=== PATIENT | male | born 1950 | race Caucasian/White ===

== ENCOUNTER → 2017-12-17 | Day surgery (SDC) | payer MEDICARE, OTHER ==
[2017-12-12 11:35] LABS: BASOPHILS # (AUTO) 0.1 (0.0-0.1); BASOPHILS % 1.3 % (0.0-1.0); EOSINOPHILS # (AUTO) 0.1 (0.0-0.4); EOSINOPHILS % 2.6 % (0.0-6.0); HEMATOCRIT 45.7 % (38.2-49.6); HEMOGLOBIN 14.8 g/dL (14.0-18.0); LYMPHOCYTES # (AUTO) 1.9 (1.0-3.2); LYMPHOCYTES % 35.8 % (18.0-39.1); MEAN CORPUSCULAR HEMOGLOBIN 29.3 pg (28-32); MEAN CORPUSCULAR HGB CONC 32.4 g/dL (31-35); MEAN CORPUSCULAR VOLUME 90.5 fL (81-99); MONOCYTES # (AUTO) 0.5 (0.2-0.8); MONOCYTES % 9.2 % (4.4-11.3); NEUTROPHILS # (AUTO) 2.7 (2.1-6.9); NEUTROPHILS % 50.5 % (38.7-80.0); PLATELET COUNT 179 x10e3/uL (140-360); RED BLOOD COUNT 5.05 x10e6/uL (4.3-5.7)
[~2017-12-17] MED LIST: ASPIRIN325 MG PO; FENTANYL CITRATE/PF 100MCG/2 ML INJ ONE; HYOSCYAMINE SULFATE 0.5 MG/ML AMP ONE; LIDOCAINE HCL 2% LOCAL INJ 5 ML SDV VIAL INJ ONE; MIDAZOLAM HCL 2 MG/2 ML VIAL ONE; PACERONE100 MG PO; PROPOFOL IV EMULSION 10 MG/ML 50 ML VIAL ONE; SIMETHICONE 40 MG/0.6 ML BTL ONE; SIMVASTATIN PO
[2017-12-17 09:45] VITALS: BP 117/84
--- NOTE | 2017-12-17 10:12 | Operative Report ---
DATE OF PROCEDURE: December 17, 2017 REFERRING PHYSICIAN: Dr. Erick Ascencio PROCEDURE PERFORMED: Colonoscopy and polypectomy. INDICATIONS FOR COLONOSCOPY: Colorectal cancer screening and personal history of colon polyps. MEDICATION: Patient was done under MAC. Please see anesthesiologist's note. PROCEDURE: With the patient in the left lateral decubitus position, the flexible fiberoptic Olympus colonoscope was inserted into the rectum with ease and advanced all the way to the cecum. The scope was then withdrawn slowly. Mucosa overlying the cecum appeared to be within normal limits. One polyp was hot biopsied and one polyp was snared from the ascending colon. The transverse and descending appeared to be within normal limits. One polyp was hot biopsied from the sigmoid. The rectum appeared to be within normal limits. The scope was then retroflexed into the distal rectum and small internal hemorrhoids were noted, none of which were actively bleeding. The scope was then straightened out. It was subsequently withdrawn. The patient tolerated the procedure well. IMPRESSION 1. Ascending colon polyps times 2, one snared and one hot biopsied. 2. Sigmoid colon polyp, hot biopsied. 3. Internal hemorrhoids, none actively bleeding. PLAN: Follow up histology. Initiate high-fiber and low-fat diet. Initiate high-fiber supplement. Patient will need a followup colonoscopy in 3-5 years. Job#: [id number] RI cc:DO LEATHA UGARTE MD
== END | disposition home or self-care (01) ==
LOC: OR 06:17
PROVIDERS: ATTEND Internal Medicine Gastroenterology
DX: Z12.11 Encounter for screening for malignant neoplasm of colon (principal); D12.2 Benign neoplasm of ascending colon; K64.8 Other hemorrhoids; I48.91 Unspecified atrial fibrillation; Z88.0 Allergy status to penicillin; Z88.2 Allergy status to sulfonamides; Z01.812 Encounter for preprocedural laboratory examination; Z79.82 Long term (current) use of aspirin
CPT/HCPCS: 36415 ×2; 45384; 45385; 82948; 85025; 88305; J1980; J2001; J2250; 45378

== ENCOUNTER → 2019-06-11 | Day surgery (SDC) | payer MEDICARE, OTHER ==
[2019-06-10 13:04] LABS: BASOPHILS # (AUTO) 0.1 (0.0-0.1); BASOPHILS % 0.9 % (0.0-1.0); EOSINOPHILS # (AUTO) 0.1 (0.0-0.4); EOSINOPHILS % 1.2 % (0.0-6.0); HEMATOCRIT 45.3 % (38.2-49.6); HEMOGLOBIN 14.8 g/dL (14.0-18.0); LYMPHOCYTES # (AUTO) 1.9 (1.0-3.2); LYMPHOCYTES % 27.5 % (18.0-39.1); MEAN CORPUSCULAR HEMOGLOBIN 29.5 pg (28-32); MEAN CORPUSCULAR HGB CONC 32.7 g/dL (31-35); MEAN CORPUSCULAR VOLUME 90.4 fL (81-99); MONOCYTES # (AUTO) 0.5 (0.2-0.8); MONOCYTES % 7.1 % (4.4-11.3); NEUTROPHILS # (AUTO) 4.3 (2.1-6.9); NEUTROPHILS % 62.3 % (38.7-80.0); PLATELET COUNT 178 x10e3/uL (140-360); RED BLOOD COUNT 5.01 x10e6/uL (4.3-5.7); RED CELL DISTRIBUTION WIDTH 13.1 % (11.7-14.4)
--- NOTE | 2019-06-10 13:25 | Diagnostic Imaging Report ---
EXAMINATION: CHEST 2 VIEWS INDICATION: Pre-operative COMPARISON: None FINDINGS: LINES/TUBES:None LUNGS:The lungs are well-inflated. No focal consolidation or pulmonary edema. PLEURA:No pleural effusion or pneumothorax. MEDIASTINUM:The cardiomediastinal silhouette appears normal in size and shape. BONES/SOFT TISSUES:No acute osseous injury. ABDOMEN:No free air under the diaphragm. IMPRESSION: No focal pneumonia or pulmonary edema. Signed by: Randell Maddox MD on 06/10/2019 1:22 PM
[~2019-06-11] MED LIST changes: +BUPIVACAINE HCL 0.5% INJ 30 ML VIAL INJ ONE; +CLINDAMYCIN PHOS 900MG/ 50ML 50 ML IV ONE; +DEXAMETHASONE SOD PHOS INJ 4 MG/ML VIAL ONE; -HYOSCYAMINE SULFATE 0.5 MG/ML AMP ONE; +KETOROLAC TROMETHAMINE 30 MG/ML VIAL ONE; +LEVOTHYROXINE75 MCG PO; +MELOXICAM7.5 MG PO; +ONDANSETRON HCL INJ 2MG/ML 2ML 2 MG/ML VIAL ONE; +PROPOFOL IV EMULSION 10 MG/ML 20 ML VIAL ONE; -PROPOFOL IV EMULSION 10 MG/ML 50 ML VIAL ONE; +SEVOFLURANE INHAL SOLN 250 ML PEN BTL ONE; -SIMETHICONE 40 MG/0.6 ML BTL ONE; +TESTOSTERONE IM
--- OUTSIDE RECORDS SUMMARY | 2019-06-11 09:53 | XMS REPORT ---
[facility] Address Unknown Phone Unavailable Care Team Providers Care Access Database Developer Name Role Phone JAN MASSEY Unavailable Unavailable Payers Payer Name Policy Type Policy Number Effective Date Expiration Date Problems This patient has no known problems. Allergies, Adverse Reactions, Alerts Allergy Name Allergy Type Status Severity Reaction(s) Onset Date Inactive Date Treating Clinician Comments Penicillins DA Active 2012-07-01 00:00:00 Sulfa (Sulfonamide Antibiotics) DA Active 2012-07-01 00:00:00 Medications This patient has no known medications. Results Test Description Test Time Test Comments Text Results Atomic Results Result Comments CHEST 2 VIEWS 2019-06-10 13:21:00 [place] [address] Patient Name: HEIDI CRESPO MR #: [id number] : 1950 Age/Sex: 68/M Req #: [id number] Adm Physician: Ordered by: JAN MASSEY MD Report #: [id number] Location: OR Room/Bed: Procedure: [id number] DX/CHEST 2 VIEWS Exam Date: 06/10/19 Exam Time: 1300 REPORT STATUS: Signed EXAMINATION: CHEST 2 VIEWS INDICATION: Pre-operative COMPARISON: None FINDINGS: LINES/TUBES:None LUNGS:The lungs are well-inflated. No focal consolidation or pulmonary edema. PLEURA:No pleural effusion or pneumothorax. MEDIASTINUM:The cardiomediastinal silhouette appears normal in size and shape. BONES/SOFT TISSUES:No acute osseous injury. ABDOMEN:No free air under the diaphragm. IMPRESSION: No focal pneumonia or pulmonary edema. Signed by: Abdoulaye Burgess MD on 06/10/2019 1:22 PM Dictated By: ABDOULAYE BURGESS MD 1322 Transcribed By: [employer] LAYNE on 06/10/19 1322 COPY TO: JAN MASSEY MD - XR KNEE 3 V RT 2019-05-25 17:10:00 Name: HEIDI CRESPO [facility] : 1950 Age/S:68 /M [address] [facility] Unit#:[id number] Loc: [place] [address] Phys: Amado Eric NP Dis Date: PHONE #: [phone] Status: REG ER FAX #: [phone] Exam Date: 05/25/2019 Reason: TRAUMA EXAMS: CPT CODE: [id number] XR KNEE 3 V RT 94624 REASON FOR EXAM: TRAUMA EXAM ORDER DATE: 05/25/2019 4:59 PM Ordering: Amado Eric NP Attending:Susan Marquez MD Location:[facility] PROCEDURE: - XR KNEE 3 V RT FINDINGS: 3 views of the right knee were obtained. The osseous structures are unremarkable in size and shape with small osteophytes in the lateral compartment. The joint spaces are maintained. No evidence of fracture. The patella is intact IMPRESSION: Small joint effusion. No acute osseous abnormality at 1710 Reported and signed by: Red Hutchins M.D. CC: Susan Marquez MD; Erick Ascencio DO; Amado Eric NP Technologist: Taylor Asencio Trnscrpt Data: 05/25/2019 (171) t.GIANA Orig Print D/T: S: 05/25/2019 (2514) PAGE 1 Signed Report - US ABDOMEN COMPLETE 2018-09-23 13:43:00 Name: HEIDI CRESPO [facility] : 1950 Age/S: 68 / M [address] [facility] Unit #: [id number] Loc: [place], [place] [address] Phys: SonuErick Payne Acct: [id number] Dis Date: Status: REG CLI PHONE #: [phone] Exam Date: 09/23/2018 1317 FAX #: [phone] Reason: RLQ ABD PAIN EXAMS: CPT CODE: [id number] US ABDOMEN COMPLETE 16270 TECHNIQUE - US ABDOMEN COMPLETE . COMPARISON: None provided. HISTORY: 68 years Male RLQ ABD PAIN FINDINGS: Pancreas: Pancreas is not well-visualized. Liver: Normal size. Increased echogenicity. No focal lesions. Liver measures 14.3 cm. Normal flow in the portal vein towards the liver. Gallbladder: Normal in distention. No stones. No wall thickening. Gallbladder wall measures 0.25cm. No pericholecystic fluid. Negative ultrasound Francis sign. Biliary ducts: No intra or extrahepatic biliary dilatation. Common bile duct (CBD) measures 0.26 cm. Spleen: Normal echogenicity. 10.4 x 4.0 x 3.6 cm. Right Kidney: 11.0 x 5.5 x 5.6 cm. Normal echogenicity. No stones. No hydronephrosis. No focal lesions. Left Kidney: 11.9 x 5.6 x 4.7 cm. Normal echogenicity. No stones. No hydronephrosis. No focal lesions. Other: No ascites. IMPRESSION: Fatty liver. No gallstones. Exam limited secondary to patient body habitus. at 1343 Reported and signed by: Indio Leon M.D. PAGE 1 Signed Report (CONTINUED) [facility] 1950 [facility]S: 68 / M [address] [facility] Unit #: [id number] Loc: [place] [address] Phys: Erick Ascencio DO Acct: [id number] Dis Date: Status: REG CLI PHONE #: [phone] Exam Date: 09/23/2018 1317 FAX #: [phone] Reason: RLQ ABD PAIN EXAMS: CPT CODE: [id number] US ABDOMEN COMPLETE 99549 <Continued> CC: Erick Ascencio DO Technologist: Shirley Schultz RDMS Trnscb Date/Time: 09/23/2018 (3559) Geoffrey Orig Print D/T: S: 09/23/2018 (9648) Probe: PAGE 2 Signed Report
[2019-06-11 16:15] VITALS: BP 142/75
--- NOTE | 2019-06-12 23:55 | Operative Report ---
DATE OF PROCEDURE: 06/11/2019 SURGEON: Nigel Ly MD PREOPERATIVE DIAGNOSES: Right knee lateral meniscus tear, right knee degenerative joint disease of the knee. POSTOPERATIVE DIAGNOSES: Right knee lateral meniscus tear, right knee degenerative joint disease of the knee. OPERATIONS/PROCEDURES PERFORMED: The patient underwent a right knee examination under anesthesia, right knee arthroscopy, right knee partial lateral meniscectomy, right knee chondroplasty of the patella, the trochlea, the medial femoral condyle, the medial tibial plateau, the lateral femoral condyle, and lateral tibial plateau. METHODS TIME ANALYST: KIMBERLY Rodriguez ANESTHESIA: General endotracheal intubation anesthesia. IV FLUIDS: Per the Anesthesia record. BLOOD LOSS: Normal. BRIEF DESCRIPTION OF THE PATIENT'S OPERATIVE PROCEDURE: Mr. Hebert was taken to the operative room and placed in supine position on the operating table. Following induction of general anesthesia as well as the endotracheal intubation, the patient's right lower extremity was examined under anesthesia. He was found to have a mild effusion within the knee joint, but otherwise ligamentously stable knee. The patient's lower extremity was prepped and draped in standard surgical fashion. A two-port technique was used to provide this patient's arthroscopic evaluation to the knee joint. Examination of suprapatellar pouch and medial and lateral gutters found no evidence of loose bodies. There was, however, evidence of chondromalacia of the patella and trochlear surfaces. The scope was advanced to medial compartment. Examination of medial compartment demonstrated chondromalacia of the articulating surfaces. The meniscus demonstrated some mild fraying in the posterior horn, but no tearing. A chondroplasty of the medial femoral condyle and medial tibial plateau performed at this time. Scope was advanced to the intercondylar notch and the anterior cruciate ligament was identified and found to be intact. The scope was advanced to lateral compartment and a large parrot-beak tear of the lateral meniscus was encountered. There was further maceration of the mid and posterior horns of the lateral meniscus. A combination of biting forceps and motorized shaver used to resect the torn portion of meniscus. There was also chondromalacia of the lateral femoral condyle and lateral tibial plateau. A chondroplasty of each of these surfaces was performed. Scope was then placed in suprapatellar pouch, and chondroplasties of the patella and trochlea were performed. The knee was deflated with sterile normal saline. Each of the portal sites were closed using 4-0 nylon suture. The portal sites as well as knee itself were injected with 0.5% Marcaine with epinephrine. Sterile dressings were applied and the patient was then awakened and taken to the postanesthesia care unit in stable condition. MD WILMAR Lainez/SATURNINO /[id number]
== END | disposition home or self-care (01) ==
LOC: OR 09:50
PROVIDERS: ATTEND Specialist
DX: S83.261A Peripheral tear of lateral meniscus, current injury, right knee, initial encounter (principal); M17.11 Unilateral primary osteoarthritis, right knee; Z01.810 Encounter for preprocedural cardiovascular examination; Z01.812 Encounter for preprocedural laboratory examination; Z01.811 Encounter for preprocedural respiratory examination; Z88.0 Allergy status to penicillin; Z88.2 Allergy status to sulfonamides; E03.9 Hypothyroidism, unspecified; I10 Essential (primary) hypertension; I48.91 Unspecified atrial fibrillation; E78.00 Pure hypercholesterolemia, unspecified
CPT/HCPCS: 29881; 36415; 71046; 85025; 93005; J1100; J1885; J2001; J2250; J2405; J2704; J3010

== ENCOUNTER 2019-08-06 13:00 | Outpatient (RCR) | payer MEDICARE, OTHER ==
[~2019-08-06 13:00] MED LIST changes: -BUPIVACAINE HCL 0.5% INJ 30 ML VIAL INJ ONE; -CLINDAMYCIN PHOS 900MG/ 50ML 50 ML IV ONE; -DEXAMETHASONE SOD PHOS INJ 4 MG/ML VIAL ONE; -FENTANYL CITRATE/PF 100MCG/2 ML INJ ONE; -KETOROLAC TROMETHAMINE 30 MG/ML VIAL ONE; -LIDOCAINE HCL 2% LOCAL INJ 5 ML SDV VIAL INJ ONE; -MIDAZOLAM HCL 2 MG/2 ML VIAL ONE; -ONDANSETRON HCL INJ 2MG/ML 2ML 2 MG/ML VIAL ONE; -PROPOFOL IV EMULSION 10 MG/ML 20 ML VIAL ONE; -SEVOFLURANE INHAL SOLN 250 ML PEN BTL ONE
== END 2019-08-07 ==
LOC: PT 13:00
PROVIDERS: ATTEND Specialist
DX: M25.511 Pain in right shoulder (principal); M25.561 Pain in right knee; M25.661 Stiffness of right knee, not elsewhere classified
CPT/HCPCS: 97139

== ENCOUNTER 2019-08-27 14:00 | Outpatient (RCR) | payer MEDICARE, OTHER | END 2019-09-07 | LOC: PT 14:00 | PROVIDERS: ATTEND Specialist | DX: M25.561 Pain in right knee (principal); M25.661 Stiffness of right knee, not elsewhere classified | CPT/HCPCS: 97139 ==

== ENCOUNTER → 2020-07-05 | Day surgery (SDC) | payer MEDICARE, OTHER ==
[2020-07-01 11:09] LABS: BASOPHILS # (AUTO) 0.1 (0.0-0.1); BASOPHILS % 1.1 % (0.0-1.0); EOSINOPHILS # (AUTO) 0.1 (0.0-0.4); EOSINOPHILS % 1.8 % (0.0-6.0); HEMATOCRIT 43.9 % (38.2-49.6); HEMOGLOBIN 14.2 g/dL (14.0-18.0); LYMPHOCYTES # (AUTO) 1.8 (1.0-3.2); LYMPHOCYTES % 32.7 % (18.0-39.1); MEAN CORPUSCULAR HEMOGLOBIN 29.2 pg (28-32); MEAN CORPUSCULAR HGB CONC 32.3 g/dL (31-35); MEAN CORPUSCULAR VOLUME 90.1 fL (81-99); MONOCYTES # (AUTO) 0.5 (0.2-0.8); MONOCYTES % 8.4 % (4.4-11.3); NEUTROPHILS # (AUTO) 3.1 (2.1-6.9); NEUTROPHILS % 55.6 % (38.7-80.0); PLATELET COUNT 209 x10e3/uL (140-360); RED BLOOD COUNT 4.87 x10e6/uL (4.3-5.7); RED CELL DISTRIBUTION WIDTH 13.3 % (11.7-14.4)
[~2020-07-05] MED LIST changes: +FENTANYL CITRATE/PF 100MCG/2 ML INJ ONE; +MIDAZOLAM HCL 2 MG/2 ML VIAL ONE; +PROPOFOL IV EMULSION 10 MG/ML 20 ML VIAL ONE
[2020-07-05 15:45] VITALS: BP 112/68
== END | disposition home or self-care (01) ==
LOC: OR 12:00
PROVIDERS: ATTEND Internal Medicine Gastroenterology
DX: Z09 Encounter for follow-up examination after completed treatment for conditions other than malignant neoplasm (principal); D12.2 Benign neoplasm of ascending colon; K64.8 Other hemorrhoids; R03.0 Elevated blood-pressure reading, without diagnosis of hypertension; I48.91 Unspecified atrial fibrillation; Z88.0 Allergy status to penicillin; Z88.2 Allergy status to sulfonamides; Z79.82 Long term (current) use of aspirin; Z68.30 Body mass index [BMI] 30.0-30.9, adult; Z86.16 Personal history of COVID-19
CPT/HCPCS: 36415; 45385; 85025; 88305; J2250; J2704; J3010; 45378

== ENCOUNTER 2022-08-26 14:31 | Emergency (ER) | payer OTHER, MEDICARE ==
[~2022-08-26] VITALS: Ht 182.9 cm; Wt 97.5 kg
[~2022-08-26 14:31] MED LIST changes: -FENTANYL CITRATE/PF 100MCG/2 ML INJ ONE; -MIDAZOLAM HCL 2 MG/2 ML VIAL ONE; -PROPOFOL IV EMULSION 10 MG/ML 20 ML VIAL ONE
[2022-08-26] MEDS ORDERED: IBUPROFEN 600 MG TAB PO STA (14:57)
[2022-08-26] MEDS ORDERED: TETANUS/DIPHTHERIA TOX ADULT 0.5 ML SYR IM ONE (15:00)
[2022-08-26] MEDS ORDERED: CEPHALEXIN500 MG PO (17:29)
[2022-08-26] MEDS ORDERED: DOXYCYCLINE HY100 MG PO (17:36)
[2022-08-26 17:47] VITALS: BP 131/72; PULSE 54; RESP 16; TEMP 98.9; O2SAT 99
== END 2022-08-26 17:41 | disposition home or self-care (01) ==
LOC: ER 14:40
DX: M79.641 Pain in right hand (principal); L03.113 Cellulitis of right upper limb; W01.0XXA Fall on same level from slipping, tripping and stumbling without subsequent striking against object, initial encounter; Y93.01 Activity, walking, marching and hiking; Y92.89 Other specified places as the place of occurrence of the external cause
CPT/HCPCS: 90714; 99283

== ENCOUNTER 2023-05-05 02:33 | Emergency (ER) | payer MEDICARE ==
[~2023-05-05] VITALS: Ht 182.9 cm; Wt 97.5 kg
[~2023-05-05 02:33] MED LIST changes: +CEPHALEXIN500 MG PO; +DOXYCYCLINE HY100 MG PO
[2023-05-05 03:02] LABS: BASOPHILS # (AUTO) 0.1 (0.0-0.1); EOSINOPHILS # (AUTO) 0.2 (0.0-0.4); EOSINOPHILS % 2.3 % (0.0-6.0); HEMATOCRIT 47.2 % (38.2-49.6); HEMOGLOBIN 15.1 g/dL (14.0-18.0); LYMPHOCYTES # (AUTO) 2.8 (1.0-3.2); LYMPHOCYTES % 39.6 % (18.0-39.1); MEAN CORPUSCULAR HEMOGLOBIN 29.7 pg (28-32); MEAN CORPUSCULAR VOLUME 92.7 fL (81-99); MONOCYTES # (AUTO) 0.5 (0.2-0.8); MONOCYTES % 7.7 % (4.4-11.3); NEUTROPHILS # (AUTO) 3.5 (2.1-6.9); PLATELET COUNT 192 x10e3/uL (140-360); RED BLOOD COUNT 5.09 x10e6/uL (4.3-5.7); RED CELL DISTRIBUTION WIDTH 13.2 % (11.7-14.4); WHITE BLOOD COUNT 7.04 x10e3/uL (4.8-10.8)
[2023-05-05 03:17] LABS: INR 0.91; PROTHROMBIN TIME 12.5 seconds (11.9-14.5)
[2023-05-05 03:18] LABS: PARTIAL THROMBOPLASTIN TIME 29.1 seconds (23.8-35.5)
[2023-05-05 03:21] LABS: ALBUMIN 3.8 g/dL (3.5-5.0); ALBUMIN/GLOBULIN RATIO 1.2 (0.8-2.0); ANION GAP 15.3 mmol/L (8-16); BILIRUBIN,TOTAL 0.5 mg/dL (0.2-1.2); CALCIUM 9.1 mg/dL (8.4-10.2); CREATININE, SERUM 1.27 mg/dL (0.72-1.25); POTASSIUM 4.3 mmol/L (3.5-5.1); TOTAL PROTEIN 7.1 g/dL (6.5-8.1)
[2023-05-05] MEDS ORDERED: METOPROLOL TARTRATE 25 MG TAB PO ONE (04:00)
[2023-05-05] MEDS ORDERED: APIXABAN 5 MG TABLET PO ONE (04:00)
[2023-05-05] MEDS ORDERED: ELIQUIS5 MG PO (04:05)
[2023-05-05] MEDS ORDERED: METOPROLOL TART25 MG PO (04:05)
[2023-05-05 04:10] VITALS: BP 109/75; PULSE 75
[2023-05-05 04:53] VITALS: O2SAT 100
== END 2023-05-05 04:50 | disposition home or self-care (01) ==
LOC: ER 02:40
DX: R00.2 Palpitations (principal); I48.91 Unspecified atrial fibrillation; R94.31 Abnormal electrocardiogram [ECG] [EKG]
CPT/HCPCS: 36415; 71045; 80053; 84484; 85025; 85610; 85730; 93005; 99284

== ENCOUNTER → 2024-06-09 | Day surgery (SDC) | payer MEDICARE ==
[2024-06-04 11:51] LABS: BASOPHILS # (AUTO) 0.1 (0.0-0.1); EOSINOPHILS # (AUTO) 0.1 (0.0-0.4); EOSINOPHILS % 1.5 % (0.0-6.0); HEMATOCRIT 45.6 % (38.2-49.6); HEMOGLOBIN 14.8 g/dL (14.0-18.0); LYMPHOCYTES # (AUTO) 1.8 (1.0-3.2); LYMPHOCYTES % 29.7 % (18.0-39.1); MEAN CORPUSCULAR HEMOGLOBIN 28.8 pg (28-32); MEAN CORPUSCULAR HGB CONC 32.5 g/dL (31-35); MEAN CORPUSCULAR VOLUME 88.9 fL (81-99); MONOCYTES # (AUTO) 0.5 (0.2-0.8); MONOCYTES % 7.7 % (4.4-11.3); NEUTROPHILS # (AUTO) 3.6 (2.1-6.9); NEUTROPHILS % 59.3 % (38.7-80.0); PLATELET COUNT 192 x10e3/uL (140-360); RED BLOOD COUNT 5.13 x10e6/uL (4.3-5.7); RED CELL DISTRIBUTION WIDTH 14.1 % (11.7-14.4); WHITE BLOOD COUNT 5.99 x10e3/uL (4.8-10.8)
[~2024-06-09] MED LIST changes: +ASPIRIN81 MG PO; +CETIRIZINE HCL10 MG PO; +ELIQUIS5 MG PO; +FISH OIL 1,2001 EACH PO; +HYOSCYAMINE SULFATE 0.5 MG/ML INJ ONE; +LEVOTHYROXINE50 MCG PO; +LIDOCAINE HCL 2% LOCAL INJ 5 ML SDV VIAL INJ ONE; +METOPROLOL TART25 MG PO; +OMEPRAZOLE40 MG PO; +PROPOFOL IV EMULSION 10 MG/ML 20 ML VIAL ONE; +PROPOFOL IV EMULSION 50 ML IV ONE; +vit d3 PO
[2024-06-09] MEDS: LACTATED RINGER'S 1,000 ML ONE (10:26)
[2024-06-09 12:51] VITALS: TEMP 98
[2024-06-09 13:20] VITALS: BP 126/78; PULSE 78; RESP 16; O2SAT 97
== END | disposition home or self-care (01) ==
LOC: OR 09:47
PROVIDERS: ATTEND Internal Medicine Gastroenterology
DX: Z09 Encounter for follow-up examination after completed treatment for conditions other than malignant neoplasm (principal); Z86.0100 Personal history of colon polyps, unspecified; K64.8 Other hemorrhoids; I48.91 Unspecified atrial fibrillation; E03.9 Hypothyroidism, unspecified; Z88.0 Allergy status to penicillin; Z88.2 Allergy status to sulfonamides; Z01.810 Encounter for preprocedural cardiovascular examination; Z01.812 Encounter for preprocedural laboratory examination; Z79.82 Long term (current) use of aspirin; Z79.899 Other long term (current) drug therapy
CPT/HCPCS: 36415; 45378; 85025; 93005; J1980; J2003; J2704 ×2; J7121

== ENCOUNTER 2024-07-31 20:30 | Emergency (ER) | payer MEDICARE ==
[~2024-07-31] VITALS: Ht 182.9 cm; Wt 97.5 kg
[~2024-07-31 20:30] MED LIST changes: -HYOSCYAMINE SULFATE 0.5 MG/ML INJ ONE; -LIDOCAINE HCL 2% LOCAL INJ 5 ML SDV VIAL INJ ONE; -PROPOFOL IV EMULSION 10 MG/ML 20 ML VIAL ONE; -PROPOFOL IV EMULSION 50 ML IV ONE
[2024-07-31] MEDS ORDERED: SODIUM CHLORIDE FLUSH 10 ML SYR IV PRN (21:30)
[2024-07-31 22:03] LABS: BASOPHILS # (AUTO) 0.1 (0.0-0.1); BASOPHILS % 0.6 % (0.0-1.0); EOSINOPHILS # (AUTO) 0.1 (0.0-0.4); EOSINOPHILS % 1.5 % (0.0-6.0); HEMATOCRIT 47.5 % (38.2-49.6); HEMOGLOBIN 15.4 g/dL (14.0-18.0); LYMPHOCYTES # (AUTO) 2.2 (1.0-3.2); LYMPHOCYTES % 27.7 % (18.0-39.1); MEAN CORPUSCULAR HEMOGLOBIN 29.5 pg (28-32); MEAN CORPUSCULAR HGB CONC 32.4 g/dL (31-35); MONOCYTES # (AUTO) 0.5 (0.2-0.8); MONOCYTES % 6.8 % (4.4-11.3); NEUTROPHILS % 62.8 % (38.7-80.0); PLATELET COUNT 218 x10e3/uL (140-360); RED BLOOD COUNT 5.22 x10e6/uL (4.3-5.7); RED CELL DISTRIBUTION WIDTH 14.1 % (11.7-14.4); WHITE BLOOD COUNT 7.92 x10e3/uL (4.8-10.8)
[2024-07-31 22:45] LABS: ALBUMIN 3.8 g/dL (3.5-5.0); ANION GAP 16.7 mmol/L (8-16); BILIRUBIN,TOTAL 0.6 mg/dL (0.2-1.2); CREATININE, SERUM 1.67 mg/dL (0.72-1.25); POTASSIUM 4.7 mmol/L (3.5-5.1); TOTAL PROTEIN 7.5 g/dL (6.5-8.1)
[2024-07-31 22:53] LABS: TROPONIN I 0.001 ng/mL (0-0.300)
[2024-07-31] MEDS: SODIUM CHLORIDE 0.9% 1000ML 1,000 ML IV ONE (23:35)
[2024-08-01 00:59] VITALS: PULSE 69; RESP 18; TEMP 98
[2024-08-01 01:06] VITALS: BP 127/85; PULSE 69; RESP 18; TEMP 98; O2SAT 99
== END 2024-08-01 01:16 | disposition home or self-care (01) ==
LOC: ER 21:10
DX: M25.561 Pain in right knee (principal); M71.21 Synovial cyst of popliteal space [Baker], right knee; R07.89 Other chest pain; I10 Essential (primary) hypertension; E78.5 Hyperlipidemia, unspecified; I48.91 Unspecified atrial fibrillation; E03.9 Hypothyroidism, unspecified; M54.9 Dorsalgia, unspecified; G89.29 Other chronic pain; R94.31 Abnormal electrocardiogram [ECG] [EKG]
CPT/HCPCS: 36415; 71046; 80053; 84484; 85025; 93005; 99284; J7030